=== PATIENT | male | born 1950 | race Caucasian/White ===

== ENCOUNTER 2020-11-11 10:21 | Outpatient (CLI) | payer MEDICARE, OTHER ==
--- NOTE | 2020-11-11 11:51 | Ultrasound Report ---
PROCEDURE: Chest INDICATIONS: MASS OF CHEST WALL TECHNIQUE: Real-time scanning was performed of the sternoclavicular chest wall mass. COMPARISON: None. FINDINGS: There is a heterogeneous cartilaginous mass beneath the muscle at the sternoclavicular junction measu ring about 2.7 x 1.5 x 1.0 cm. No internal vascularity. Per technologist report, this mass is at a pr ior benign biopsy site. IMPRESSION: 1. 2.7 cm avascular mass in the sternoclavicular region. Chest CT is recommended to assess for its re lationship to the sternoclavicular joint. Hypertrophic degeneration at this joint is common. Please c orrelate with prior biopsy as a biopsy was done of this location previously. Reviewed by: Esthela Obrien MD on 11/11/2020 11:49 AM PDT Approved by: Esthela Obrien MD on 11/11/2020 11:49 AM PDT Station ID: [id number]
== END 2020-11-11 10:22 | disposition home or self-care (01) ==
LOC: DI 10:21
PROVIDERS: ATTEND Nurse Practitioner Family
DX: R93.89 Abnormal findings on diagnostic imaging of other specified body structures (principal)

== ENCOUNTER 2020-11-20 12:56 | Outpatient (CLI) | payer MEDICARE, OTHER ==
--- NOTE | 2020-11-20 14:03 | CT Report ---
PROCEDURE: CHEST WO INDICATIONS: MASS OF CHEST WALL TECHNIQUE: Noncontrast 5 mm thick sections acquired from the pulmonary apices to the posterior costophrenic angl es. 7 mm thick coronal and sagittal MIP reformats were then acquired. For radiation dose reduction, the following was used: automated exposure control, adjustment of mA and/or kV according to patient size. COMPARISON: Correlation is made with chest ultrasound, 11/11/2020. FINDINGS: Image quality: Excellent. Lungs and pleura: No acute air space opacities. No pleural effusions or pneumothorax. Central and peripheral airways are patent and normal in caliber. Mediastinum: Heart size is normal. No pericardial effusion. No mediastinal adenopathy by size crit eria. Thoracic aorta and central pulmonary arteries are normal in size. Esophagus is normal in rudy candice. No hiatal hernia. Bones and chest wall: Screening is given to the region of the left sternoclavicular joint. At this s ite, there is focal degenerative change seen, with abundant callus formation, including anteriorly an d posteriorly projected osteophytes. This can be seen for example on series 4 image 86. No suspicious bony lesions or masses can be seen. No suspicious bony lesions. No vertebral body compression fractures. Mild dextroconvex scoliotic cur vature is seen. No axillary or supraclavicular adenopathy by size criteria. The thyroid is normal i n size and there are no incidental findings. Abdomen: Visualized upper abdominal solid organs and bowel loops appear normal in the absence of con trast. IMPRESSION: At the site of clinical concern, there is focal left sternoclavicular joint degenerative change, with abundant osteophyte formation, including anteriorly projected osteophytes. No suspicious masses are seen. Reviewed by: Artie Sam MD on 11/20/2020 1:02 PM SANDRA Approved by: Artie Sam MD on 11/20/2020 1:02 PM SANDRA Station ID: [id number]
== END 2020-11-20 12:57 | disposition home or self-care (01) ==
LOC: DI 12:56
PROVIDERS: ATTEND Nurse Practitioner Family
DX: R93.7 Abnormal findings on diagnostic imaging of other parts of musculoskeletal system (principal)

== ENCOUNTER 2021-08-15 13:00 | Outpatient (CLI) | payer MEDICARE, OTHER ==
--- NOTE | 2021-08-15 15:42 | XRAY Report ---
PROCEDURE: Shoulder 3 View RT INDICATIONS: Chronic shoulder pain TECHNIQUE: 3 views of the shoulder were acquired. COMPARISON: None. FINDINGS: Bones: No fractures or dislocations. No suspicious bony lesions. Visualized ribs appear intact. M oderate to severe acromioclavicular and mild to moderate glenohumeral degenerative narrowing is prese nt. No erosions. Minimal osteophytes are present. Soft tissues: No suspicious soft tissue calcifications. IMPRESSION: Acromioclavicular and glenohumeral arthritic narrowing as above. Reviewed by: Kalee Bass MD on 08/15/2021 3:41 PM PST Approved by: Kalee Bass MD on 08/15/2021 3:41 PM PST Station ID: [id number]
--- NOTE | 2021-08-15 17:14 | XRAY Report ---
PROCEDURE: Cervical Spine 2 View INDICATIONS: Fall 3 months ago. Continuing problems. TECHNIQUE: 3 view(s) of the cervical spine were acquired. COMPARISON: None. FINDINGS: Bones: No fractures or dislocations to the T1 level. The lateral masses of C1 appear intact on the odontoid view. No suspicious bony lesions. Moderate C5-C6 and C6-C7 degenerative disc changes. Mild C4-C5 and C7-T1 degenerative disc changes. Mild C2-C3, C3-C4, C4-C5, C5-C6 and C6-C7 facet arthropath y. Soft tissues: No prevertebral soft tissue swelling. IMPRESSION: 1. Multilevel degenerative disease. 2. Multilevel facet arthropathy. 3. No fracture. No acute osseous lesion. If there is continued clinical concern for pathology, then M RI should be considered for further evaluation. Reviewed by: Lyn Hercules MD, PhD on 08/15/2021 5:13 PM PST Approved by: Lyn Hercules MD, PhD on 08/15/2021 5:13 PM PST Station ID: [id number]
--- NOTE | 2021-08-15 17:24 | XRAY Report ---
PROCEDURE: Thoracic Spine 2 View INDICATIONS: Fall 3 months ago. Upper back pain. TECHNIQUE: 3 views of the thoracic spine were acquired. COMPARISON: None. FINDINGS: Bones: No fractures or dislocations. No suspicious bony lesions. 12 pairs of ribs are noted, and a ppear intact where visualized. Moderate degenerative disc changes noted throughout the thoracic spine . Soft tissues: No paravertebral stripe thickening. IMPRESSION: 1. Multilevel degenerative disc disease. 2. No fracture. No acute osseous lesion. If there is continued clinical concern for pathology, then M RI should be considered for further evaluation. Reviewed by: Lyn Hercules MD, PhD on 08/15/2021 5:22 PM PST Approved by: Lyn Hercules MD, PhD on 08/15/2021 5:22 PM PST Station ID: [id number]
== END 2021-08-15 13:01 | disposition home or self-care (01) ==
LOC: DI.S 13:00
PROVIDERS: ATTEND Nurse Practitioner Family
DX: M19.011 Primary osteoarthritis, right shoulder (principal); M50.31 Other cervical disc degeneration, high cervical region; M47.812 Spondylosis without myelopathy or radiculopathy, cervical region; M51.34 Other intervertebral disc degeneration, thoracic region